=== PATIENT | female | born 1955 | race Caucasian/White ===

== ENCOUNTER 2019-10-09 10:38 | Inpatient (IN) ==
[2019-10-13] MEDS ORDERED: Budesonide Neb 0.5 MG/2 ML IH PRN (17:04)
[2019-10-13] MEDS ORDERED: Nitroglycerin 0.4 MG TAB.SUBL SL PRN (17:04)
[2019-10-13] MEDS ORDERED: Fluticasone Propionate Nasal 50 MCG/SPRAY BOTTLE NS PRN (17:04)
[2019-10-13] MEDS ORDERED: Baclofen 10 MG TABLET PO PRN (17:04)
[2019-10-13] MEDS ORDERED: Levalbuterol 1 PUFF INHALER IH PRN (17:04)
[2019-10-13] MEDS: Apixaban 5 MG TABLET PO SCH (20:22)
[2019-10-13] MEDS: Doxycycline 100 MG CAPSULE PO SCH (20:22)
[2019-10-13] MEDS: *HR* OxyCODONE/APAP 10/325 TABLET PO PRN (20:22)
[2019-10-13] MEDS: Pregabalin 75 MG CAPSULE PO SCH (20:22)
[2019-10-13] MEDS: traZODone 50 MG TABLET PO SCH (20:22)
[2019-10-13] MEDS: Ranolazine 500 MG TAB.ER.12H PO SCH (20:23)
[2019-10-13] MEDS: Celecoxib 100 MG CAPSULE PO SCH (20:28)
[2019-10-13] MEDS ORDERED: Ranolazine 500 MG TAB.ER.12H PO SCH (21:00)
[2019-10-14 06:15] LABS: Basophils # 0.1 K/mcL (0.0-0.2); Basophils % 0.6 %; Eosinophils # 0.4 K/mcL (0.0-0.6); Eosinophils % 3.1 %; Hematocrit 33.6 % (35.3-44.9); Hemoglobin 11.1 g/dL (11.5-15.4); Immature Granulocytes % 0.9 % (0-4); Lymphocytes # 2.5 K/mcL (0.6-4.6); Lymphocytes % 21.7 %; Mean Corpuscular Hemoglobin 30.7 pg (28.0-33.3); Mean Corpuscular Volume 92.8 fL (83.0-100.0); Mean Platelet Volume 8.7 fL (9.4-12.4); Monocytes # 1.1 K/mcL (0.0-1.3); Monocytes % 9.7 %; Neutrophils # 7.2 K/mcL (1.6-8.9); Platelet Count 346 K/mcL (140-400); Red Blood Count 3.62 M/mcL (3.82-4.97); Red Cell Distribution Width 13.7 % (11.5-14.5); White Blood Count 11.3 K/mcL (4.3-11.1)
[2019-10-14 06:56] LABS: BUN/Creatinine Ratio 17 (6-26); Blood Urea Nitrogen 17 mg/dL (8-23); Calcium 9.1 mg/dL (8.6-10.3); Carbon Dioxide 34 mEq/L (23-29); Chloride 103 mEq/L (98-107); Glucose 110 mg/dL (70-105); Osmolality,Calculated 296 (280-300); Potassium 4.2 mEq/L (3.5-5.1); Sodium 142 mEq/L (136-145); eGFR For African Americans > 60 (> 60); eGFR For Non-African Americans 55 (> 60)
[2019-10-14] MEDS: Celecoxib 100 MG CAPSULE PO SCH ×2 (08:50→21:40)
[2019-10-14] MEDS: Doxycycline 100 MG CAPSULE PO SCH ×2 (08:51→21:38)
[2019-10-14] MEDS: BuPROPion XL (24 HR) 150 MG TABLET PO SCH (08:51)
[2019-10-14] MEDS: Cyanocobalamin (B-12) 1,000 MCG TABLET PO SCH (08:51)
[2019-10-14] MEDS: Ranolazine 500 MG TAB.ER.12H PO SCH ×2 (08:51→21:39)
[2019-10-14] MEDS: Pregabalin 75 MG CAPSULE PO SCH ×2 (08:52→21:39)
[2019-10-14] MEDS: *HR* Metformin 500 MG TABLET PO SCH ×2 (08:52→18:42)
[2019-10-14] MEDS: Isosorbide MONOnitrate (24 HR) 30 MG TAB.ER.24H PO SCH (08:52)
[2019-10-14] MEDS: DilTIAZem CD (24hr) 240 MG CAP.ER.24H PO SCH (08:52)
[2019-10-14] MEDS: Furosemide 20 MG TABLET PO SCH (08:52)
[2019-10-14] MEDS: Apixaban 5 MG TABLET PO SCH ×2 (08:52→21:39)
[2019-10-14] MEDS: Prenatal Vit/FA 1 EACH TABLET PO SCH (08:52)
[2019-10-14] MEDS: ROFLUMILAST 250 MG PO SCH (10:26)
[2019-10-14] MEDS ORDERED: Levalbuterol Neb 1.25 MG/3 ML AER PRN (10:31)
[2019-10-14] MEDS: Tiotropium 18 MCG inhalation IH SCH (10:35)
[2019-10-14] MEDS: *HR* OxyCODONE/APAP 10/325 TABLET PO PRN (18:54)
[2019-10-14] MEDS: Psyllium 1 PACKET POWD.PACK PO SCH (21:38)
[2019-10-14] MEDS: Lactobacillus 1 EACH CAP.SPRINK PO SCH (21:39)
[2019-10-14] MEDS: traZODone 50 MG TABLET PO SCH (21:40)
[2019-10-15] MEDS: Lactobacillus 1 EACH CAP.SPRINK PO SCH ×2 (09:31→22:20)
[2019-10-15] MEDS: Furosemide 20 MG TABLET PO SCH (09:31)
[2019-10-15] MEDS: Psyllium 1 PACKET POWD.PACK PO SCH ×3 (09:31→22:18)
[2019-10-15] MEDS: DilTIAZem CD (24hr) 240 MG CAP.ER.24H PO SCH (09:31)
[2019-10-15] MEDS: Aspirin Enteric Coated 81 MG Tablet PO SCH ×2 (09:31→22:19)
[2019-10-15] MEDS: Doxycycline 100 MG CAPSULE PO SCH ×2 (09:31→22:19)
[2019-10-15] MEDS: Pregabalin 75 MG CAPSULE PO SCH ×2 (09:31→22:19)
[2019-10-15] MEDS: Apixaban 5 MG TABLET PO SCH ×2 (09:32→22:20)
[2019-10-15] MEDS: Ranolazine 500 MG TAB.ER.12H PO SCH ×2 (09:32→22:19)
[2019-10-15] MEDS: *HR* OxyCODONE/APAP 10/325 TABLET PO PRN ×3 (09:32→22:19)
[2019-10-15] MEDS: Cyanocobalamin (B-12) 1,000 MCG TABLET PO SCH (09:32)
[2019-10-15] MEDS: Isosorbide MONOnitrate (24 HR) 30 MG TAB.ER.24H PO SCH (09:32)
[2019-10-15] MEDS: BuPROPion XL (24 HR) 150 MG TABLET PO SCH (09:33)
[2019-10-15] MEDS: *HR* Metformin 500 MG TABLET PO SCH ×2 (09:33→16:32)
[2019-10-15] MEDS: ROFLUMILAST 250 MG PO SCH (09:45)
[2019-10-15] MEDS: Celecoxib 100 MG CAPSULE PO SCH ×2 (09:49→22:17)
[2019-10-15] MEDS: Prenatal Vit/FA 1 EACH TABLET PO SCH (09:49)
[2019-10-15] MEDS: Tiotropium 18 MCG inhalation IH SCH (10:37)
[2019-10-15] MEDS: traZODone 50 MG TABLET PO SCH (22:20)
[2019-10-16 08:05] VITALS: BP 126/79
[2019-10-16] MEDS: Celecoxib 100 MG CAPSULE PO SCH (08:41)
[2019-10-16] MEDS: *HR* OxyCODONE/APAP 10/325 TABLET PO PRN (08:42)
[2019-10-16] MEDS: Ranolazine 500 MG TAB.ER.12H PO SCH (08:42)
[2019-10-16] MEDS: Isosorbide MONOnitrate (24 HR) 30 MG TAB.ER.24H PO SCH (08:42)
[2019-10-16] MEDS: Doxycycline 100 MG CAPSULE PO SCH (08:42)
[2019-10-16] MEDS: Pregabalin 75 MG CAPSULE PO SCH (08:42)
[2019-10-16] MEDS: Psyllium 1 PACKET POWD.PACK PO SCH (08:42)
[2019-10-16] MEDS: Aspirin Enteric Coated 81 MG Tablet PO SCH (08:43)
[2019-10-16] MEDS: *HR* Metformin 500 MG TABLET PO SCH (08:43)
[2019-10-16] MEDS: Apixaban 5 MG TABLET PO SCH (08:43)
[2019-10-16] MEDS: Lactobacillus 1 EACH CAP.SPRINK PO SCH (08:43)
[2019-10-16] MEDS: Cyanocobalamin (B-12) 1,000 MCG TABLET PO SCH (08:43)
[2019-10-16] MEDS: Prenatal Vit/FA 1 EACH TABLET PO SCH (08:43)
[2019-10-16] MEDS: DilTIAZem CD (24hr) 240 MG CAP.ER.24H PO SCH (08:43)
[2019-10-16] MEDS: Furosemide 20 MG TABLET PO SCH (08:43)
[2019-10-16] MEDS: BuPROPion XL (24 HR) 150 MG TABLET PO SCH (08:43)
[2019-10-16] MEDS: ROFLUMILAST 250 MG PO SCH (08:44)
[2019-10-16] MEDS: Tiotropium 18 MCG inhalation IH SCH (10:51)
== END 2019-10-16 15:36 | disposition home health service (06) | DRG 189 ==
LOC: INPPIK 10-13 18:35
PROVIDERS: ADMIT Family Medicine; ATTEND Family Medicine